=== PATIENT | female | born 1955 | race Caucasian/White ===

== ENCOUNTER 2024-11-12 11:23 | Day surgery (SDC) | payer MEDICARE, OTHER, SELFPAY ==
[2024-11-12] VITALS (10 sets, daily range): BP systolic 104–142; BP diastolic 49–83; BMI 31.6
[2024-11-12] MEDS: LOW STRENGTH ASPIRIN 324 MG PO (12:13)
--- NOTE | 2024-11-12 13:29 | ITS.CL.CATH ---
Attraction Attendant - Catheterization
Cardiac Catheterization
Procedure Report:
RIGHT AND LEFT HEART CATHETERIZATION
Date of Procedure: November 12, 2024
Primary Care Physician: Dr. Kahn
Primary Trend Investigator: Myself
Procedures performed:
1: Coronary angiography
2: Left ventricular hemodynamic assessment
3: Right heart catheterization
INDICATION: The patient is a 69-year-old woman with a past medical history significant for COPD status post lobectomy for lung cancer, prior acoustic neuroma resection who has had chronic exertional dyspnea dating back to 2019. She now also notes
exertional chest heaviness. She is obese and is currently at her highest weight in her life. She is also sedentary with no regular exercise. She underwent several stress tests in the past which were low risk but most recently had a cardiac SPECT
CT which suggested possible LAD ischemia. She is referred for right and left heart catheterization.
ACCESS: The patient was prepped and draped in usual sterile fashion. A 5 [place] sheath was placed in the right radial artery using the Seldinger over the wire technique. A 5 [place] sheath was then placed in the right brachial vein using the same
technique.
HEMODYNAMIC FINDINGS (mmHg):
RA(a,v,m): 18, 15, 14
RV(s/d,EDP): 40/14, 19
PA(s/d/m): 37/18, 25
PCWP(a,v,m): 23, 21, 18
LV(s/d,EDP): 170/14, 28
Ao(s/d,m): 170/77, 112
Oxygen Saturations (mg/dl):
PA: 70% on room air
LV: 94% on room air
Cardiac Output/Index (l/min / l/min/m2):
Estimated Fred Method: 4.3 / 2.3
VALVE HEMODYNAMICS:
No significant aortic or mitral valve stenosis.
ANGIOGRAPHIC FINDINGS:
Single-plane Left Ventriculography in MUNIZ Projection: Not done.
Coronary Angiography:
Dominance: Right
Left Main: Normal
Left Anterior Descending: The left anterior descending artery is a medium caliber vessel that gives rise to 2 medium caliber diagonal branches. These vessels appear angiographically normal without focal disease and normal flow in all vessels.
Left Circumflex: The left circumflex is a medium caliber vessel that gives rise to a small first obtuse marginal branch and a larger second obtuse marginal branch. These vessels appear angiographically normal.
Right Coronary: The right coronary artery is a medium caliber dominant vessel who gives rise to a small caliber posterior descending artery and 2 small posterior left ventricular branches. These vessels appear angiographically normal.
Fluoroscopy Time (min): 3.1
Radiation Dose (mGy): 218
DAP (Gy.cm2): 15
Closure device: None. A TR band was applied for hemostasis at the right wrist. The femoral vein groin sheath will be pulled with manual pressure for hemostasis.
Complications: None.
ASSESSMENT:
1: Normal coronary arteries.
2: Elevated left ventricular filling pressures with mild to moderate moderately elevated pulmonary pressures.
CONCLUSIONS and RECOMMENDATIONS:
1: Traditional risk factor modification with weight loss and exercise is critical.
2: In light of elevated filling pressures with elevated blood pressure will start amlodipine 2.5 mg daily. If she can afford Farxiga 10 mg daily will also start.
3: Heart rate during the procedure was in the high 40s and low 50s despite holding low-dose beta-quinton. Will do formal exercise stress test to evaluate chronotropic competence - it may be reasonable to consider dual-chamber pacemaker placement.
Will continue close clinical follow-up.
Lien Gallegos M.D.
== END 2024-11-12 16:05 | disposition home or self-care (01) ==
LOC: CATH 11:23
PROVIDERS: ATTENDING PHYSICIAN Internal Medicine Interventional Cardiology; FAMILY PHYSICIAN Internal Medicine Critical Care Medicine
DX: R07.89 Other chest pain (principal); J44.9 Chronic obstructive pulmonary disease, unspecified; E66.9 Obesity, unspecified; Z79.899 Other long term (current) drug therapy; R06.09 Other forms of dyspnea; I45.89 Other specified conduction disorders; Z90.2 Acquired absence of lung [part of]; E78.5 Hyperlipidemia, unspecified
CPT/HCPCS: 93460; C1894; Q9967